=== PATIENT | male | born 1980 | race Two or more races ===

== ENCOUNTER 2021-11-14 14:50 | Inpatient (IN) | payer OTHER ==
[2021-11-14] MEDS ORDERED: SODIUM CHLORIDE 2,694 ML IV ONE (15:25)
[2021-11-14] MEDS ORDERED: ONDANSETRON 4 MG/2 ML VIAL IVPB ONE (15:46)
[2021-11-14] MEDS ORDERED: ONDANSETRON 4 MG/2 ML VIAL ONE (15:50)
[2021-11-14] MEDS ORDERED: SODIUM CHLORIDE 500 ML IV STA (16:31)
[2021-11-14] MEDS ORDERED: ACETAMINOPHEN 1000 MG/100 ML BAG IVPB ONE ×2 (16:31→16:46)
[2021-11-14 16:35] LABS: BASO % 0.2 % (0-2.0); EOS % 0.6 % (0-4.5); HEMATOCRIT 34.3 % (35.4-49); HEMOGLOBIN 11.8 GM/dL (11.7-16.9); LYMPH % 7.8 % (8-40); MCH 30.8 pg (25.7-33.7); MCHC 34.5 g/dl (32.0-35.9); MEAN CELL VOLUME 89.5 fl (80-96); MEAN PLT VOLUME 7.3 fl (7.5-11.1); MONO % 5.1 % (3.8-10.2); NEUT % 86.3 % (42.8-82.8); PLATELET COUNT 194 10^3/uL (134-434); RBC 3.84 M/mm3 (4.00-5.60); RDW 14.1 % (11.9-15.9); WHITE BLOOD COUNT 7.2 K/mm3 (4.0-10.0)
[2021-11-14 16:43] LABS: INR 1.13 (0.83-1.09)
[2021-11-14 16:44] LABS: VENOUS BASE EXCESS 0.7 mmol/L (-2-2); VENOUS O2 SATURATION 60.4 % (70-80); VENOUS PCO2 53.5 mmHg (38-52); VENOUS PH 7.328 (7.310-7.410)
[2021-11-14 16:46] LABS: ACTIVATED PTT 29.5 SECONDS (25.2-36.5)
[2021-11-14 17:01] LABS: CHLORIDE 96 mmol/L (98-107); SODIUM 135 mmol/L (136-145)
[2021-11-14 17:04] LABS: ALBUMIN 4.2 g/dl (3.4-5.0); ANION GAP 7 MMOL/L (8-16); BLOOD UREA NITROGEN 24.3 mg/dL (7-18); CO2 32 mmol/L (21-32); GLUCOSE,RANDOM 92 mg/dL (74-106)
[2021-11-14 17:07] LABS: CREATININE 6.6 mg/dL (0.55-1.3); SGOT/AST 18 U/L (15-37); SGPT/ALT 26 U/L (13-61)
[2021-11-14 17:08] LABS: BILIRUBIN,TOTAL 0.5 mg/dL (0.2-1)
[2021-11-14 17:09] LABS: TOT PROT 8.6 g/dl (6.4-8.2)
[2021-11-14 17:10] LABS: ALK PHOS 96 U/L (45-117)
[2021-11-14] MEDS ORDERED: ACETAMINOPHEN INJECTION 100 ML IVPB ONE (17:11)
[2021-11-14 17:40] LABS: LIPASE 146 U/L (73-393)
[2021-11-14] MEDS ORDERED: DEXAMETHASONE SOD PHOSPHATE 20 MG/5 ML VIAL IVPB ONE (18:03)
[2021-11-14 18:12] LABS: PHOSPHOROUS 3.1 mg/dL (2.5-4.9)
[2021-11-14] MEDS ORDERED: DEXAMETHASONE SOD PHOSPHATE 10 MG/1 ML VIAL ONE (18:57)
[2021-11-14 21:12] LABS: EPI CELLS 7 /uL (0-25.1); HYALINE CASTS 1 /uL (0-3.1); PH,URINE >= 9.0 (5.0-8.0); URINE APPEARANCE CLEAR; URINE BACTERIA 14 /uL (0-1359); URINE BILIRUBIN NEGATIVE (NEGATIVE); URINE COLOR YELLOW; URINE GLUCOSE (UA) TRACE (NEGATIVE); URINE KETONE NEGATIVE (NEGATIVE); URINE LEUK ESTERASE TRACE (NEGATIVE); URINE NITRITE NEGATIVE (NEGATIVE); URINE PROTEIN 3+ (NEGATIVE); URINE RBC 37 /uL (0-23.9); URINE UROBILINOGEN 0.2 mg/dL (0.2-1.0); URINE WBC 184 /uL (0-25.8)
[2021-11-14] MEDS ORDERED: CEFTRIAXONE 1,000 MG in DEXTROSE 5%-WATER - 50 ML IVPB ONE (21:55)
[2021-11-14] MEDS ORDERED: ACETAMINOPHEN 325 MG TABLET (FP) PO PRN (22:31)
[2021-11-14] MEDS ORDERED: SODIUM CHLORIDE 250 ML IV PRN (22:33)
[2021-11-14] MEDS ORDERED: CEFTRIAXONE 1 GM/50 ML BAG ONE (22:50)
[2021-11-15 03:02] VITALS: BMI 29.2
[2021-11-15] MEDS ORDERED: DEXTROSE 5%-WATER - 50 ML IVPB ONE ×3 (04:56→17:24)
[2021-11-15] MEDS ORDERED: PIPERACILLIN/TAZOBACTAM 3.375 GM VIAL IVPB ONE ×3 (04:56→17:24)
[2021-11-15] MEDS ORDERED: VANCOMYCIN 1 GM in D5W (PRE-DOCKED) 1,000 MG/250 ML IVPB SCH (05:00)
[2021-11-15] MEDS: PIPERACILLIN/TAZOB 3.375 GM 3.375 GM in DEXTROSE 5%-WATER - 50 ML IVPB SCH ×3 (05:20→17:41)
[2021-11-15] MEDS: INSULIN SLIDING SCALE (NOVOLOG) 1 VIAL SQ SCH ×4 (06:02→22:00)
[2021-11-15] MEDS: HEPARIN NA (PORCINE) 5,000 UNITS/ML 1ML VIAL SQ SCH ×3 (06:02→21:54)
[2021-11-15 08:59] LABS: BASO % 0.1 % (0-2.0); EOS % 0.5 % (0-4.5); HEMOGLOBIN 11.2 GM/dL (11.7-16.9); MCH 31.1 pg (25.7-33.7); MCHC 34.8 g/dl (32.0-35.9); MEAN CELL VOLUME 89.3 fl (80-96); MEAN PLT VOLUME 7.3 fl (7.5-11.1); MONO % 5.8 % (3.8-10.2); NEUT % 80.6 % (42.8-82.8); PLATELET COUNT 170 10^3/uL (134-434); RBC 3.59 M/mm3 (4.00-5.60); RDW 13.7 % (11.9-15.9)
[2021-11-15 09:18] LABS: CHLORIDE 94 mmol/L (98-107); SODIUM 130 mmol/L (136-145)
[2021-11-15 09:32] LABS: ALBUMIN 3.6 g/dl (3.4-5.0); ANION GAP 9 MMOL/L (8-16); BLOOD UREA NITROGEN 38.4 mg/dL (7-18); CALCIUM 8.5 mg/dL (8.5-10.1); CO2 26 mmol/L (21-32); MAGNESIUM 2.3 mg/dL (1.8-2.4); PHOSPHOROUS 4.7 mg/dL (2.5-4.9)
[2021-11-15 09:33] LABS: BILIRUBIN,TOTAL 0.5 mg/dL (0.2-1); TOT PROT 7.4 g/dl (6.4-8.2)
[2021-11-15 09:34] LABS: ALK PHOS 79 U/L (45-117)
[2021-11-15 09:35] LABS: SGOT/AST 15 U/L (15-37); SGPT/ALT 21 U/L (13-61)
[2021-11-15 09:40] LABS: CREATININE 8.7 mg/dL (0.55-1.3); GLUCOSE,RANDOM 109 mg/dL (74-106)
[2021-11-15] MEDS ORDERED: PNEUMOC 13-VAL CONJ-DIP CRM/PF 0.5 ML DISP.SYRIN IM ONE (10:00)
[2021-11-15] MEDS: amLODIPine BESYLATE 10 MG TABLET (FP) PO SCH (10:15)
[2021-11-15] MEDS: LISINOPRIL 20 MG TABLET PO SCH (10:16)
[2021-11-15] MEDS: LABETALOL HCL 200 MG TABLET (FP) PO SCH (17:29)
[2021-11-15] MEDS ORDERED: SODIUM CHLORIDE 250 ML IV PRN (18:20)
[2021-11-16] MEDS ORDERED: PIPERACILLIN/TAZOB 3.375 GM 3.375 GM in DEXTROSE 5%-WATER - 50 ML IVPB SCH (02:00)
[2021-11-16] MEDS ORDERED: PIPERACILLIN/TAZOBACTAM 2.25 GM VIAL IVPB ONE ×3 (02:21→09:46)
[2021-11-16] MEDS ORDERED: DEXTROSE 5%-WATER - 50 ML IVPB ONE ×3 (02:22→09:46)
[2021-11-16] MEDS: PIPERACILLIN/TAZOB 2.25 GM 2.25 GM in DEXTROSE 5%-WATER - 50 ML IVPB SCH ×3 (02:30→18:29)
[2021-11-16] MEDS ORDERED: VANCOMYCIN 1 GM in D5W (PRE-DOCKED) 1,000 MG/250 ML IVPB SCH (05:00)
[2021-11-16] MEDS: HEPARIN NA (PORCINE) 5,000 UNITS/ML 1ML VIAL SQ SCH ×3 (06:02→21:35)
[2021-11-16] MEDS: INSULIN SLIDING SCALE (NOVOLOG) 1 VIAL SQ SCH ×4 (06:09→21:36)
[2021-11-16] MEDS: LABETALOL HCL 200 MG TABLET (FP) PO SCH (09:43)
[2021-11-16] MEDS: amLODIPine BESYLATE 10 MG TABLET (FP) PO SCH (09:43)
[2021-11-16] MEDS: LISINOPRIL 20 MG TABLET PO SCH (09:43)
[2021-11-16 10:11] LABS: HEMATOCRIT 28.4 % (35.4-49); HEMOGLOBIN 9.8 GM/dL (11.7-16.9); MCH 30.9 pg (25.7-33.7); MCHC 34.6 g/dl (32.0-35.9); MEAN CELL VOLUME 89.2 fl (80-96); MEAN PLT VOLUME 8.3 fl (7.5-11.1); PLATELET COUNT 148 10^3/uL (134-434); RBC 3.19 M/mm3 (4.00-5.60); RDW 13.6 % (11.9-15.9); WHITE BLOOD COUNT 4.9 K/mm3 (4.0-10.0)
[2021-11-16 10:23] LABS: CHLORIDE 94 mmol/L (98-107); SODIUM 130 mmol/L (136-145)
[2021-11-16 10:26] LABS: ANION GAP 13 MMOL/L (8-16); BLOOD UREA NITROGEN 58.6 mg/dL (7-18); CALCIUM 8.3 mg/dL (8.5-10.1); CO2 23 mmol/L (21-32)
[2021-11-16 10:30] LABS: CREATININE 12.2 mg/dL (0.55-1.3); GLUCOSE,RANDOM 159 mg/dL (74-106)
[2021-11-16] MEDS ORDERED: VANCOMYCIN 1 GRAM (PRE-DOCKED) 1,000 MG/250 ML BAG IVPB ONE (18:00)
[2021-11-16] MEDS ORDERED: INSULIN (NOVOLOG) ASPART 100 UNITS/ML 10ML VIAL ONE (20:51)
[2021-11-17] MEDS ORDERED: PIPERACILLIN/TAZOBACTAM 2.25 GM VIAL IVPB ONE ×2 (01:50→11:22)
[2021-11-17] MEDS ORDERED: DEXTROSE 5%-WATER - 50 ML IVPB ONE ×2 (01:50→11:22)
[2021-11-17] MEDS: PIPERACILLIN/TAZOB 2.25 GM 2.25 GM in DEXTROSE 5%-WATER - 50 ML IVPB SCH ×2 (01:57→11:28)
[2021-11-17] MEDS: HEPARIN NA (PORCINE) 5,000 UNITS/ML 1ML VIAL SQ SCH ×3 (05:48→21:50)
[2021-11-17] MEDS ORDERED: VANCOMYCIN 1 GM in D5W (PRE-DOCKED) 1,000 MG/250 ML IVPB ONE (09:25)
[2021-11-17] MEDS: amLODIPine BESYLATE 10 MG TABLET (FP) PO SCH (10:51)
[2021-11-17] MEDS: LISINOPRIL 20 MG TABLET PO SCH (10:51)
[2021-11-17] MEDS: LABETALOL HCL 200 MG TABLET (FP) PO SCH (10:52)
[2021-11-17] MEDS: INSULIN SLIDING SCALE (NOVOLOG) 1 VIAL SQ SCH ×3 (12:34→21:53)
[2021-11-17] MEDS ORDERED: SODIUM CHLORIDE 250 ML IV PRN (16:35)
[2021-11-18] MEDS: HEPARIN NA (PORCINE) 5,000 UNITS/ML 1ML VIAL SQ SCH ×3 (05:54→21:56)
[2021-11-18] MEDS: INSULIN SLIDING SCALE (NOVOLOG) 1 VIAL SQ SCH ×5 (06:03→22:01)
[2021-11-18 09:15] LABS: BASO % 0.4 % (0-2.0); EOS % 6.9 % (0-4.5); HEMATOCRIT 29.1 % (35.4-49); HEMOGLOBIN 9.9 GM/dL (11.7-16.9); LYMPH % 34.4 % (8-40); MCH 30.3 pg (25.7-33.7); MEAN CELL VOLUME 89.1 fl (80-96); MEAN PLT VOLUME 7.7 fl (7.5-11.1); MONO % 8.6 % (3.8-10.2); NEUT % 49.7 % (42.8-82.8); PLATELET COUNT 182 10^3/uL (134-434); RBC 3.27 M/mm3 (4.00-5.60); RDW 13.7 % (11.9-15.9); WHITE BLOOD COUNT 4.3 K/mm3 (4.0-10.0)
[2021-11-18] MEDS: LISINOPRIL 20 MG TABLET PO SCH (09:35)
[2021-11-18] MEDS: amLODIPine BESYLATE 10 MG TABLET (FP) PO SCH (09:35)
[2021-11-18] MEDS: LABETALOL HCL 200 MG TABLET (FP) PO SCH (09:36)
[2021-11-18 09:37] LABS: CHLORIDE 98 mmol/L (98-107); SODIUM 137 mmol/L (136-145)
[2021-11-18 09:44] LABS: CALCIUM 8.4 mg/dL (8.5-10.1); GLUCOSE,RANDOM 101 mg/dL (74-106)
[2021-11-18 09:45] LABS: ANION GAP 12 MMOL/L (8-16); BLOOD UREA NITROGEN 47.4 mg/dL (7-18); CO2 28 mmol/L (21-32); MAGNESIUM 2.8 mg/dL (1.8-2.4); PHOSPHOROUS 7.6 mg/dL (2.5-4.9)
[2021-11-18 09:48] LABS: CREATININE 11.9 mg/dL (0.55-1.3)
[2021-11-18] MEDS ORDERED: VANCOMYCIN 1 GM in D5W (PRE-DOCKED) 1,000 MG/250 ML IVPB ONE (12:00)
[2021-11-18] MEDS ORDERED: VANCOMYCIN 1 GM in D5W (PRE-DOCKED) 1,000 MG/250 ML IVPB SCH (18:30)
[2021-11-19] MEDS: HEPARIN NA (PORCINE) 5,000 UNITS/ML 1ML VIAL SQ SCH ×2 (06:25→14:28)
[2021-11-19] MEDS: INSULIN SLIDING SCALE (NOVOLOG) 1 VIAL SQ SCH ×2 (06:26→10:22)
[2021-11-19 08:47] LABS: BASO % 0.3 % (0-2.0); EOS % 5.7 % (0-4.5); HEMATOCRIT 30.4 % (35.4-49); HEMOGLOBIN 10.8 GM/dL (11.7-16.9); LYMPH % 35.6 % (8-40); MCH 31.2 pg (25.7-33.7); MCHC 35.3 g/dl (32.0-35.9); MEAN CELL VOLUME 88.5 fl (80-96); MEAN PLT VOLUME 7.4 fl (7.5-11.1); MONO % 7.5 % (3.8-10.2); NEUT % 50.9 % (42.8-82.8); PLATELET COUNT 199 10^3/uL (134-434); RBC 3.44 M/mm3 (4.00-5.60); RDW 13.4 % (11.9-15.9); WHITE BLOOD COUNT 5.1 K/mm3 (4.0-10.0)
[2021-11-19 08:53] LABS: CHLORIDE 100 mmol/L (98-107); SODIUM 138 mmol/L (136-145)
[2021-11-19 08:58] LABS: ANION GAP 7 MMOL/L (8-16); BLOOD UREA NITROGEN 32.7 mg/dL (7-18); CALCIUM 8.2 mg/dL (8.5-10.1); CO2 31 mmol/L (21-32); GLUCOSE,RANDOM 106 mg/dL (74-106); MAGNESIUM 2.4 mg/dL (1.8-2.4)
[2021-11-19 09:08] LABS: CREATININE 9.2 mg/dL (0.55-1.3)
[2021-11-19] MEDS: LABETALOL HCL 200 MG TABLET (FP) PO SCH (10:21)
[2021-11-19] MEDS: amLODIPine BESYLATE 10 MG TABLET (FP) PO SCH (10:22)
[2021-11-19] MEDS: LISINOPRIL 20 MG TABLET PO SCH (10:22)
[2021-11-19 14:12] VITALS: BP 140/88; PULSE 74; TEMP 97.9
[2021-11-20] MEDS ORDERED: VANCOMYCIN 1 GM in D5W (PRE-DOCKED) 1,000 MG/250 ML IVPB SCH (18:30)
== END 2021-11-19 15:30 | disposition home or self-care (01) | DRG 724 ==
LOC: JER 14:50 → JERBED 17:28 → J7W 11-15 02:11 → J6S 11-15 12:15 → J7W 11-17 17:53
PROVIDERS: ADMIT Hospitalist
PROC: 5A1D70Z Performance of Urinary Filtration, Intermittent, Less than 6 Hours Per Day (ICD-10-PCS; principal; 2021-11-16)
PROC: 5A1D70Z Performance of Urinary Filtration, Intermittent, Less than 6 Hours Per Day (ICD-10-PCS; 2021-11-18)
DX: R78.81 Bacteremia (principal); I12.0 Hypertensive chronic kidney disease with stage 5 chronic kidney disease or end stage renal disease; E11.22 Type 2 diabetes mellitus with diabetic chronic kidney disease; N18.6 End stage renal disease; R00.0 Tachycardia, unspecified; E11.42 Type 2 diabetes mellitus with diabetic polyneuropathy; R09.02 Hypoxemia; R10.9 Unspecified abdominal pain; R11.2 Nausea with vomiting, unspecified; Z79.4 Long term (current) use of insulin; Z99.2 Dependence on renal dialysis
CPT/HCPCS: 36415; 71045-TC-FY; 71275-TC; 72129-TC; 72132-TC; 80048; 80053; 81003; 82553; 82803; 82962; 83605; 83690; 83735; 84100; 84484; 85025; 85027; 85610; 85730; 86803; 86850; 86900; 86901; 87040; 87086; 87186; 87340; 87522; 87804; 93005; 93010; 93306-TC; 99285-25; C9803; G0480; J1644; Q9967; U0003; U0005

== ENCOUNTER 2022-11-09 13:14 | Inpatient (IN) | payer OTHER ==
[2022-11-09] MEDS ORDERED: FUROSEMIDE 40 MG/4 ML INJECTABLE VIAL IVPUSH ONE (14:01)
[2022-11-09] MEDS ORDERED: FUROSEMIDE 40 MG/4 ML INJECTABLE VIAL ONE (14:06)
[2022-11-09 15:49] LABS: BASO % 0.3 % (0-2.0); EOS % 2.8 % (0-4.5); HEMATOCRIT 26.4 % (35.4-49); HEMOGLOBIN 9.1 GM/dL (11.7-16.9); LYMPH % 18.8 % (8-40); MCH 32.4 pg (25.7-33.7); MCHC 34.5 g/dl (32.0-35.9); MEAN CELL VOLUME 93.8 fl (80-96); MEAN PLT VOLUME 6.9 fl (7.5-11.1); MONO % 4.6 % (3.8-10.2); NEUT % 73.5 % (42.8-82.8); PLATELET COUNT 247 10^3/uL (134-434); RBC 2.81 M/mm3 (4.00-5.60); RDW 14.9 % (11.9-15.9); WHITE BLOOD COUNT 6.6 K/mm3 (4.0-10.0)
[2022-11-09 15:50] LABS: VENOUS BASE EXCESS 5.4 mmol/L (-2-2); VENOUS O2 SATURATION 55.2 % (70-80); VENOUS PCO2 45.1 mmHg (38-52); VENOUS PH 7.443 (7.310-7.410)
[2022-11-09 16:08] LABS: INR 1.1 (0.83-1.09); PROTHROMBIN TIME (PATIENT) 12.7 SEC (9.7-13.0)
[2022-11-09 16:10] LABS: ACTIVATED PTT 28.7 SECONDS (25.2-36.5)
[2022-11-09 16:13] LABS: ALBUMIN 3.3 g/dl (3.4-5.0); BLOOD UREA NITROGEN 20.8 mg/dL (7-18); CALCIUM 8.7 mg/dL (8.5-10.1); MAGNESIUM 2.3 mg/dL (1.8-2.4)
[2022-11-09 16:18] LABS: BILIRUBIN,TOTAL 0.5 mg/dL (0.2-1); TOT PROT 7.3 g/dl (6.4-8.2)
[2022-11-09 16:21] LABS: N-TERMINAL BNP 12675.4 pg/ml (5-125)
[2022-11-09] MEDS ORDERED: CALCIUM ACETATE 667 MG CAPSULE (FP) PO SCH (22:00)
[2022-11-09] MEDS ORDERED: LABETALOL HCL 100 MG TABLET (FP) ONE (23:09)
[2022-11-09] MEDS ORDERED: HEPARIN NA (PORCINE) 5,000 UNITS/ML 1ML VIAL ONE (23:09)
[2022-11-09] MEDS ORDERED: GABAPENTIN 100 MG CAPSULE ONE (23:14)
[2022-11-09] MEDS: HEPARIN NA (PORCINE) 5,000 UNITS/ML 1ML VIAL SQ SCH (23:15)
[2022-11-09] MEDS: LABETALOL HCL 100 MG TABLET (FP) PO SCH (23:15)
[2022-11-09] MEDS: CALCIUM ACETATE 667 MG CAPSULE (FP) PO SCH (23:15)
[2022-11-09] MEDS: GABAPENTIN 300 MG CAPSULE PO SCH (23:15)
[2022-11-10 01:35] VITALS: BMI 30.4
[2022-11-10] MEDS: LABETALOL HCL 100 MG TABLET (FP) PO SCH ×3 (06:25→21:09)
[2022-11-10] MEDS: HEPARIN NA (PORCINE) 5,000 UNITS/ML 1ML VIAL SQ SCH ×3 (06:25→21:09)
[2022-11-10] MEDS: INSULIN SLIDING SCALE (NOVOLOG) 1 VIAL SQ SCH ×3 (06:25→18:04)
[2022-11-10] MEDS ORDERED: glipiZIDE 5 MG TABLET (FP) PO SCH (07:00)
[2022-11-10] MEDS ORDERED: SODIUM CHLORIDE 250 ML IV PRN (07:26)
[2022-11-10] MEDS ORDERED: EPOETIN ALFA-EPBX 4,000 UNIT/ML VIAL SQ ONE (08:30)
[2022-11-10] MEDS: CALCIUM ACETATE 667 MG CAPSULE (FP) PO SCH ×3 (08:44→18:04)
[2022-11-10 09:15] LABS: CHLORIDE 104 mmol/L (98-107); SODIUM 139 mmol/L (136-145)
[2022-11-10 09:30] LABS: ANION GAP 6 MMOL/L (8-16); BLOOD UREA NITROGEN 33.7 mg/dL (7-18); CALCIUM 8.8 mg/dL (8.5-10.1); CO2 28 mmol/L (21-32); GLUCOSE,RANDOM 128 mg/dL (74-106)
[2022-11-10 09:37] LABS: CREATININE 8.8 mg/dL (0.55-1.3)
[2022-11-10] MEDS: GABAPENTIN 300 MG CAPSULE PO SCH ×2 (09:50→21:09)
[2022-11-10] MEDS: amLODIPine BESYLATE 10 MG TABLET (FP) PO SCH (09:52)
[2022-11-10] MEDS ORDERED: LISINOPRIL 10 MG TABLET PO SCH (10:00)
[2022-11-10 12:34] LABS: BASO % 0.2 % (0-2.0); EOS % 3.9 % (0-4.5); HEMATOCRIT 24.5 % (35.4-49); HEMOGLOBIN 8.1 GM/dL (11.7-16.9); LYMPH % 13.4 % (8-40); MCH 31.5 pg (25.7-33.7); MCHC 33.2 g/dl (32.0-35.9); MEAN PLT VOLUME 7.6 fl (7.5-11.1); MONO % 4.6 % (3.8-10.2); NEUT % 77.9 % (42.8-82.8); PLATELET COUNT 236 10^3/uL (134-434); RBC 2.58 M/mm3 (4.00-5.60); RDW 15.4 % (11.9-15.9)
[2022-11-10] MEDS ORDERED: LISINOPRIL 20 MG TABLET PO SCH (14:14)
[2022-11-11] MEDS: LABETALOL HCL 100 MG TABLET (FP) PO SCH ×3 (06:30→22:54)
[2022-11-11] MEDS: HEPARIN NA (PORCINE) 5,000 UNITS/ML 1ML VIAL SQ SCH ×3 (06:30→22:54)
[2022-11-11] MEDS: INSULIN SLIDING SCALE (NOVOLOG) 1 VIAL SQ SCH ×3 (06:34→16:10)
[2022-11-11] MEDS ORDERED: SODIUM CHLORIDE 250 ML IV PRN (07:26)
[2022-11-11] MEDS ORDERED: EPOETIN ALFA-EPBX 4,000 UNIT/ML VIAL SQ ONE (08:30)
[2022-11-11 08:31] LABS: BASO % 0.1 % (0-2.0); EOS % 5.3 % (0-4.5); HEMATOCRIT 24.5 % (35.4-49); HEMOGLOBIN 8.4 GM/dL (11.7-16.9); LYMPH % 16.7 % (8-40); MCH 32.5 pg (25.7-33.7); MCHC 34.4 g/dl (32.0-35.9); MEAN CELL VOLUME 94.3 fl (80-96); MEAN PLT VOLUME 7.3 fl (7.5-11.1); MONO % 5.1 % (3.8-10.2); NEUT % 72.8 % (42.8-82.8); PLATELET COUNT 223 10^3/uL (134-434); RBC 2.59 M/mm3 (4.00-5.60); RDW 15.1 % (11.9-15.9); WHITE BLOOD COUNT 6.5 K/mm3 (4.0-10.0)
[2022-11-11 08:53] LABS: CALCIUM 8.4 mg/dL (8.5-10.1)
[2022-11-11 08:55] LABS: BLOOD UREA NITROGEN 24.1 mg/dL (7-18); MAGNESIUM 2.2 mg/dL (1.8-2.4)
[2022-11-11 08:57] LABS: PHOSPHOROUS 4.5 mg/dL (2.5-4.9)
[2022-11-11 08:58] LABS: BILIRUBIN,TOTAL 0.6 mg/dL (0.2-1); CREATININE 6.8 mg/dL (0.55-1.3); TOT PROT 6.6 g/dl (6.4-8.2)
[2022-11-11] MEDS: GABAPENTIN 300 MG CAPSULE PO SCH ×2 (09:30→22:54)
[2022-11-11] MEDS: CALCIUM ACETATE 667 MG CAPSULE (FP) PO SCH ×3 (09:30→17:21)
[2022-11-11] MEDS: amLODIPine BESYLATE 10 MG TABLET (FP) PO SCH (09:30)
[2022-11-11] MEDS: LISINOPRIL 20 MG TABLET PO SCH (09:31)
[2022-11-12] MEDS: LABETALOL HCL 200 MG, LABETALOL HCL 100 MG PO SCH ×3 (06:34→22:29)
[2022-11-12] MEDS: HEPARIN NA (PORCINE) 5,000 UNITS/ML 1ML VIAL SQ SCH ×3 (06:34→22:29)
[2022-11-12] MEDS: INSULIN SLIDING SCALE (NOVOLOG) 1 VIAL SQ SCH ×3 (06:39→17:41)
[2022-11-12] MEDS: LABETALOL HCL 100 MG TABLET (FP) PO SCH (06:52)
[2022-11-12 08:18] LABS: BASO % 0.2 % (0-2.0); EOS % 6.5 % (0-4.5); HEMATOCRIT 24.3 % (35.4-49); HEMOGLOBIN 8.4 GM/dL (11.7-16.9); LYMPH % 27.7 % (8-40); MCH 32.4 pg (25.7-33.7); MCHC 34.4 g/dl (32.0-35.9); MEAN CELL VOLUME 94.1 fl (80-96); MEAN PLT VOLUME 7.7 fl (7.5-11.1); MONO % 5.2 % (3.8-10.2); NEUT % 60.4 % (42.8-82.8); PLATELET COUNT 217 10^3/uL (134-434); RBC 2.58 M/mm3 (4.00-5.60); RDW 15.1 % (11.9-15.9); WHITE BLOOD COUNT 5.5 K/mm3 (4.0-10.0)
[2022-11-12 08:42] LABS: CALCIUM 8.3 mg/dL (8.5-10.1)
[2022-11-12 08:43] LABS: ALBUMIN 2.9 g/dl (3.4-5.0); MAGNESIUM 2.1 mg/dL (1.8-2.4)
[2022-11-12 08:46] LABS: CREATININE 6.2 mg/dL (0.55-1.3); PHOSPHOROUS 4.8 mg/dL (2.5-4.9)
[2022-11-12 08:47] LABS: TOT PROT 6.6 g/dl (6.4-8.2)
[2022-11-12 08:49] LABS: BILIRUBIN,TOTAL 0.7 mg/dL (0.2-1)
[2022-11-12] MEDS: CALCIUM ACETATE 667 MG CAPSULE (FP) PO SCH ×3 (09:32→18:17)
[2022-11-12] MEDS: LISINOPRIL 20 MG TABLET PO SCH (09:33)
[2022-11-12] MEDS: GABAPENTIN 300 MG CAPSULE PO SCH ×2 (09:33→22:29)
[2022-11-12] MEDS: amLODIPine BESYLATE 10 MG TABLET (FP) PO SCH (09:33)
[2022-11-12] MEDS: FUROSEMIDE 40 MG TABLET (FP) PO SCH (09:39)
[2022-11-12] MEDS ORDERED: EPOETIN ALFA-EPBX 4,000 UNIT/ML VIAL IVPUSH ONE (13:30)
[2022-11-12 13:40] LABS: EPI CELLS 4 /uL (0-25.1); HYALINE CASTS 1 /uL (0-3.1); PH,URINE >= 9.0 (5.0-8.0); URINE APPEARANCE CLEAR; URINE BACTERIA 36 /uL (0-1359); URINE BILIRUBIN NEGATIVE (NEGATIVE); URINE COLOR YELLOW; URINE GLUCOSE (UA) 1+ (NEGATIVE); URINE KETONE NEGATIVE (NEGATIVE); URINE LEUK ESTERASE NEGATIVE (NEGATIVE); URINE NITRITE NEGATIVE (NEGATIVE); URINE PROTEIN 4+ (NEGATIVE); URINE RBC 14 /uL (0-23.9); URINE UROBILINOGEN 0.2 mg/dL (0.2-1.0); URINE WBC 10 /uL (0-25.8)
[2022-11-13] MEDS: HEPARIN NA (PORCINE) 5,000 UNITS/ML 1ML VIAL SQ SCH ×3 (06:20→21:20)
[2022-11-13] MEDS: INSULIN SLIDING SCALE (NOVOLOG) 1 VIAL SQ SCH ×3 (06:20→16:58)
[2022-11-13] MEDS: LABETALOL HCL 200 MG, LABETALOL HCL 100 MG PO SCH ×3 (06:20→21:19)
[2022-11-13 07:29] LABS: BASO % 0.3 % (0-2.0); EOS % 5.4 % (0-4.5); HEMATOCRIT 23.5 % (35.4-49); HEMOGLOBIN 8.1 GM/dL (11.7-16.9); LYMPH % 21.5 % (8-40); MCH 32.5 pg (25.7-33.7); MCHC 34.6 g/dl (32.0-35.9); MEAN CELL VOLUME 93.9 fl (80-96); MEAN PLT VOLUME 7.8 fl (7.5-11.1); MONO % 5.8 % (3.8-10.2); PLATELET COUNT 202 10^3/uL (134-434); RBC 2.51 M/mm3 (4.00-5.60); WHITE BLOOD COUNT 5.2 K/mm3 (4.0-10.0)
[2022-11-13 07:53] LABS: ANION GAP 5 MMOL/L (8-16); BLOOD UREA NITROGEN 43.4 mg/dL (7-18); CALCIUM 8.4 mg/dL (8.5-10.1); CHLORIDE 98 mmol/L (98-107); CO2 32 mmol/L (21-32); SODIUM 136 mmol/L (136-145)
[2022-11-13 07:54] LABS: ALBUMIN 2.9 g/dl (3.4-5.0); GLUCOSE,RANDOM 139 mg/dL (74-106); MAGNESIUM 2.2 mg/dL (1.8-2.4)
[2022-11-13 07:56] LABS: PHOSPHOROUS 5.6 mg/dL (2.5-4.9); SGPT/ALT 14 U/L (13-61)
[2022-11-13 07:57] LABS: SGOT/AST 12 U/L (15-37)
[2022-11-13 07:58] LABS: BILIRUBIN,TOTAL 0.4 mg/dL (0.2-1); TOT PROT 6.4 g/dl (6.4-8.2)
[2022-11-13 07:59] LABS: ALK PHOS 78 U/L (45-117)
[2022-11-13] MEDS: CALCIUM ACETATE 667 MG CAPSULE (FP) PO SCH ×3 (08:43→16:50)
[2022-11-13] MEDS: GABAPENTIN 300 MG CAPSULE PO SCH ×2 (09:03→21:20)
[2022-11-13 11:00] LABS: ERYTHROCYTE SEDIMENTATION RATE 87 mm/hr (0-10)
[2022-11-13] MEDS ORDERED: SODIUM CHLORIDE 250 ML IV PRN (13:24)
[2022-11-13] MEDS ORDERED: EPOETIN ALFA-EPBX 4,000 UNIT/ML VIAL IVPUSH ONE (14:45)
[2022-11-13] MEDS: amLODIPine BESYLATE 10 MG TABLET (FP) PO SCH (16:49)
[2022-11-13] MEDS: LISINOPRIL 20 MG TABLET PO SCH (16:49)
[2022-11-14] MEDS: HEPARIN NA (PORCINE) 5,000 UNITS/ML 1ML VIAL SQ SCH ×3 (05:42→21:09)
[2022-11-14] MEDS: LABETALOL HCL 200 MG, LABETALOL HCL 100 MG PO SCH ×3 (05:43→21:08)
[2022-11-14] MEDS: INSULIN SLIDING SCALE (NOVOLOG) 1 VIAL SQ SCH ×3 (06:10→16:33)
[2022-11-14] MEDS: CALCIUM ACETATE 667 MG CAPSULE (FP) PO SCH ×3 (07:47→16:36)
[2022-11-14 07:57] LABS: BASO % 0.2 % (0-2.0); EOS % 5.1 % (0-4.5); HEMATOCRIT 24.1 % (35.4-49); HEMOGLOBIN 8.3 GM/dL (11.7-16.9); MCH 32.5 pg (25.7-33.7); MCHC 34.5 g/dl (32.0-35.9); MEAN CELL VOLUME 94.1 fl (80-96); MEAN PLT VOLUME 7.7 fl (7.5-11.1); MONO % 4.2 % (3.8-10.2); NEUT % 65.5 % (42.8-82.8); PLATELET COUNT 201 10^3/uL (134-434); RBC 2.56 M/mm3 (4.00-5.60); RDW 15.3 % (11.9-15.9); WHITE BLOOD COUNT 5.7 K/mm3 (4.0-10.0)
[2022-11-14 08:37] LABS: CALCIUM 8.2 mg/dL (8.5-10.1)
[2022-11-14 08:38] LABS: MAGNESIUM 2.2 mg/dL (1.8-2.4)
[2022-11-14 08:42] LABS: BILIRUBIN,TOTAL 0.3 mg/dL (0.2-1); TOT PROT 6.5 g/dl (6.4-8.2)
[2022-11-14 08:44] LABS: PHOSPHOROUS 4.1 mg/dL (2.5-4.9)
[2022-11-14 08:50] LABS: BLOOD UREA NITROGEN 33.1 mg/dL (7-18); CREATININE 7.3 mg/dL (0.55-1.3)
[2022-11-14] MEDS: amLODIPine BESYLATE 10 MG TABLET (FP) PO SCH (09:32)
[2022-11-14] MEDS: LISINOPRIL 20 MG TABLET PO SCH (09:32)
[2022-11-14] MEDS: GABAPENTIN 300 MG CAPSULE PO SCH ×2 (09:32→21:09)
[2022-11-14] MEDS ORDERED: FUROSEMIDE 40 MG TABLET (FP) PO ONE (10:00)
[2022-11-15 02:06] VITALS: RESP 18
[2022-11-15] MEDS: LABETALOL HCL 200 MG, LABETALOL HCL 100 MG PO SCH ×3 (05:48→22:21)
[2022-11-15] MEDS: HEPARIN NA (PORCINE) 5,000 UNITS/ML 1ML VIAL SQ SCH ×3 (05:49→22:21)
[2022-11-15] MEDS: INSULIN SLIDING SCALE (NOVOLOG) 1 VIAL SQ SCH ×3 (06:02→17:20)
[2022-11-15] MEDS: CALCIUM ACETATE 667 MG CAPSULE (FP) PO SCH ×3 (07:38→17:22)
[2022-11-15 07:43] LABS: BASO % 0.3 % (0-2.0); EOS % 5.5 % (0-4.5); HEMATOCRIT 25.1 % (35.4-49); HEMOGLOBIN 8.5 GM/dL (11.7-16.9); LYMPH % 26.6 % (8-40); MCH 32.1 pg (25.7-33.7); MCHC 33.7 g/dl (32.0-35.9); MEAN CELL VOLUME 95.3 fl (80-96); MEAN PLT VOLUME 7.9 fl (7.5-11.1); MONO % 6.3 % (3.8-10.2); NEUT % 61.3 % (42.8-82.8); PLATELET COUNT 183 10^3/uL (134-434); RBC 2.63 M/mm3 (4.00-5.60); RDW 15.2 % (11.9-15.9); WHITE BLOOD COUNT 4.7 K/mm3 (4.0-10.0)
[2022-11-15 08:07] LABS: CHLORIDE 100 mmol/L (98-107); SODIUM 135 mmol/L (136-145)
[2022-11-15 08:15] LABS: ANION GAP 8 MMOL/L (8-16); CALCIUM 8.4 mg/dL (8.5-10.1); CO2 27 mmol/L (21-32); GLUCOSE,RANDOM 141 mg/dL (74-106); MAGNESIUM 2.4 mg/dL (1.8-2.4)
[2022-11-15 08:17] LABS: PHOSPHOROUS 5.5 mg/dL (2.5-4.9); SGPT/ALT 22 U/L (13-61)
[2022-11-15 08:18] LABS: SGOT/AST 14 U/L (15-37)
[2022-11-15 08:19] LABS: BILIRUBIN,TOTAL 0.5 mg/dL (0.2-1); TOT PROT 6.6 g/dl (6.4-8.2)
[2022-11-15 08:20] LABS: ALK PHOS 87 U/L (45-117)
[2022-11-15 08:26] LABS: BLOOD UREA NITROGEN 50.5 mg/dL (7-18); CREATININE 9.8 mg/dL (0.55-1.3)
[2022-11-15] MEDS: amLODIPine BESYLATE 10 MG TABLET (FP) PO SCH (10:17)
[2022-11-15] MEDS: LISINOPRIL 20 MG TABLET PO SCH (10:18)
[2022-11-15] MEDS: FUROSEMIDE 40 MG TABLET (FP) PO SCH (10:18)
[2022-11-15] MEDS: GABAPENTIN 300 MG CAPSULE PO SCH ×2 (10:21→22:21)
[2022-11-15 20:09] LABS: ATYPICAL pANCA <1:20 titer (Neg:<1:20); C-ANCA <1:20 titer (Neg:<1:20)
[2022-11-15 22:09] LABS: ANTIGLOMERULAR BASEMENT MEN.AB <0.2 units (0.0-0.9)
[2022-11-16 05:20] LABS: PROTEIN S FREE 110 % (61-136)
[2022-11-16] MEDS: HEPARIN NA (PORCINE) 5,000 UNITS/ML 1ML VIAL SQ SCH ×2 (06:54→13:29)
[2022-11-16] MEDS: LABETALOL HCL 200 MG, LABETALOL HCL 100 MG PO SCH ×2 (06:54→13:29)
[2022-11-16] MEDS: INSULIN SLIDING SCALE (NOVOLOG) 1 VIAL SQ SCH ×3 (06:56→16:23)
[2022-11-16 09:07] LABS: CHOLESTEROL 151 mg/dL (50-200); TRIGLYCERIDES 158 mg/dL (0-150)
[2022-11-16 09:08] LABS: LDL CHOLESTEROL (ONLY SJRH) 89 mg/dL (5-100)
[2022-11-16 09:09] LABS: HDL CHOLESTEROL 45 mg/dL (40-60)
[2022-11-16 09:13] LABS: BASO % 0.2 % (0-2.0); EOS % 3.9 % (0-4.5); HEMATOCRIT 22.9 % (35.4-49); HEMOGLOBIN 7.7 GM/dL (11.7-16.9); LYMPH % 16.8 % (8-40); MCH 31.6 pg (25.7-33.7); MCHC 33.5 g/dl (32.0-35.9); MEAN CELL VOLUME 94.3 fl (80-96); MONO % 4.6 % (3.8-10.2); NEUT % 74.5 % (42.8-82.8); PLATELET COUNT 192 10^3/uL (134-434); RBC 2.43 M/mm3 (4.00-5.60); RDW 15.1 % (11.9-15.9); WHITE BLOOD COUNT 5.8 K/mm3 (4.0-10.0)
[2022-11-16 09:33] LABS: MAGNESIUM 2.3 mg/dL (1.8-2.4)
[2022-11-16 09:37] LABS: PHOSPHOROUS 5.2 mg/dL (2.5-4.9)
[2022-11-16] MEDS ORDERED: EPOETIN ALFA 10,000 UNIT/1 ML VIAL IVPUSH ONE (10:00)
[2022-11-16] MEDS: CALCIUM ACETATE 667 MG CAPSULE (FP) PO SCH ×3 (10:17→16:51)
[2022-11-16] MEDS: amLODIPine BESYLATE 10 MG TABLET (FP) PO SCH (10:22)
[2022-11-16] MEDS: LISINOPRIL 20 MG TABLET PO SCH (10:22)
[2022-11-16] MEDS ORDERED: SODIUM CHLORIDE 250 ML IV PRN (10:38)
[2022-11-16] MEDS ORDERED: EPOETIN ALFA-EPBX 10,000 UNIT/ML VIAL IVPUSH ONE (10:38)
[2022-11-16] MEDS: GABAPENTIN 300 MG CAPSULE PO SCH (12:16)
[2022-11-16 15:00] VITALS: BP 136/80; PULSE 85; TEMP 98.7
[2022-11-16] MEDS ORDERED: hydrALAZINE HCL 25 MG TABLET (FP) PO SCH (15:00)
[2022-11-16] MEDS ORDERED: ATORVASTATIN CA 10 MG TABLET (FP) PO SCH (22:00)
== END 2022-11-16 18:26 | disposition home or self-care (01) | DRG 133 ==
LOC: JER 13:14 → JERBED 17:41 → J4W 23:27 → J7W 11-15 18:10
PROVIDERS: ADMIT Internal Medicine; ATTEND Internal Medicine
PROC: 5A1D70Z Performance of Urinary Filtration, Intermittent, Less than 6 Hours Per Day (ICD-10-PCS; principal; 2022-11-16)
DX: J96.01 Acute respiratory failure with hypoxia (principal); N18.6 End stage renal disease; I50.31 Acute diastolic (congestive) heart failure; I13.2 Hypertensive heart and chronic kidney disease with heart failure and with stage 5 chronic kidney disease, or end stage renal disease; I27.20 Pulmonary hypertension, unspecified; E11.42 Type 2 diabetes mellitus with diabetic polyneuropathy; E11.22 Type 2 diabetes mellitus with diabetic chronic kidney disease; E66.9 Obesity, unspecified; Z68.30 Body mass index [BMI] 30.0-30.9, adult; D64.9 Anemia, unspecified; Z99.2 Dependence on renal dialysis; E87.70 Fluid overload, unspecified; I16.0 Hypertensive urgency
CPT/HCPCS: 0241U-QW; 36415; 71045-TC-FY; 71250-TC; 80048; 80053; 80061; 81003; 82803; 82962; 83036; 83516; 83520; 83735; 83880; 84100; 84443; 84484; 85025; 85303; 85305; 85306; 85610; 85651; 85730; 86038; 86140; 86256; 86803; 87081; 87340; 87522; 87899; 93005; 93010; 93306-TC; 93308; 94761; 99285-25; J1644; Q5106

== ENCOUNTER 2022-11-26 17:43 | Inpatient (IN) | payer OTHER ==
[2022-11-26 19:14] LABS: VENOUS BASE EXCESS 1.7 mmol/L (-2-2); VENOUS PCO2 38.1 mmHg (38-52); VENOUS PH 7.448 (7.310-7.410)
[2022-11-26 19:15] LABS: BASO % 0.2 % (0-2.0); HEMATOCRIT 25.4 % (35.4-49); HEMOGLOBIN 8.3 GM/dL (11.7-16.9); LYMPH % 14.2 % (8-40); MCHC 32.6 g/dl (32.0-35.9); MEAN CELL VOLUME 91.8 fl (80-96); MEAN PLT VOLUME 7.1 fl (7.5-11.1); MONO % 4.5 % (3.8-10.2); NEUT % 78.1 % (42.8-82.8); PLATELET COUNT 248 10^3/uL (134-434); RBC 2.76 M/mm3 (4.00-5.60); RDW 14.8 % (11.9-15.9); WHITE BLOOD COUNT 5.5 K/mm3 (4.0-10.0)
[2022-11-26 19:18] LABS: INR 1.14 (0.83-1.09); PROTHROMBIN TIME (PATIENT) 13.2 SEC (9.7-13.0)
[2022-11-26 19:21] LABS: ACTIVATED PTT 31.4 SECONDS (25.2-36.5)
[2022-11-26 19:36] LABS: CALCIUM 8.6 mg/dL (8.5-10.1)
[2022-11-26 19:37] LABS: BLOOD UREA NITROGEN 35.3 mg/dL (7-18); CO2 28 mmol/L (21-32); GLUCOSE,RANDOM 74 mg/dL (74-106)
[2022-11-26 19:40] LABS: SGOT/AST 12 U/L (15-37); SGPT/ALT 13 U/L (13-61)
[2022-11-26 19:41] LABS: BILIRUBIN,TOTAL 0.5 mg/dL (0.2-1); TOT PROT 6.8 g/dl (6.4-8.2)
[2022-11-26 19:43] LABS: ALK PHOS 82 U/L (45-117)
[2022-11-26 19:44] LABS: N-TERMINAL BNP 13148.4 pg/ml (5-125)
[2022-11-26 19:59] LABS: CHLORIDE 106 mmol/L (98-107); SODIUM 142 mmol/L (136-145)
[2022-11-26 20:00] LABS: ANION GAP 8 MMOL/L (8-16); CREATININE 8.9 mg/dL (0.55-1.3)
[2022-11-26] MEDS ORDERED: FUROSEMIDE 100 MG/10 ML INJECTABLE VIAL IVPB ONE (20:38)
[2022-11-26] MEDS ORDERED: FUROSEMIDE 40 MG/4 ML INJECTABLE VIAL ONE (20:51)
[2022-11-26 23:07] LABS: IRON SERUM 32 ug/dL (50-175); TOTAL IRON BINDING CAPACITY 229 ug/dL (250-450)
[2022-11-27 00:54] LABS: MAGNESIUM 2.4 mg/dL (1.8-2.4)
[2022-11-27 00:57] LABS: PHOSPHOROUS 4.1 mg/dL (2.5-4.9)
[2022-11-27] MEDS: HEPARIN NA (PORCINE) 5,000 UNITS/ML 1ML VIAL SQ SCH ×3 (06:04→21:52)
[2022-11-27] MEDS: INSULIN SLIDING SCALE (NOVOLOG) 1 VIAL SQ SCH ×4 (06:06→22:00)
[2022-11-27] MEDS: CALCIUM ACETATE 667 MG CAPSULE (FP) PO SCH ×3 (07:34→17:25)
[2022-11-27 09:27] LABS: BASO % 0.2 % (0-2.0); EOS % 2.3 % (0-4.5); HEMATOCRIT 25.2 % (35.4-49); HEMOGLOBIN 8.3 GM/dL (11.7-16.9); LYMPH % 10.7 % (8-40); MCH 30.3 pg (25.7-33.7); MCHC 33.1 g/dl (32.0-35.9); MEAN CELL VOLUME 91.5 fl (80-96); MEAN PLT VOLUME 7.6 fl (7.5-11.1); MONO % 4.5 % (3.8-10.2); NEUT % 82.3 % (42.8-82.8); PLATELET COUNT 251 10^3/uL (134-434); RBC 2.76 M/mm3 (4.00-5.60); RDW 14.9 % (11.9-15.9); WHITE BLOOD COUNT 8.1 K/mm3 (4.0-10.0)
[2022-11-27] MEDS ORDERED: SODIUM CHLORIDE 250 ML IV PRN (09:27)
[2022-11-27] MEDS ORDERED: HEPARIN NA (PORCINE) 5,000 UNITS/ML 1ML VIAL IVPUSH ONE (09:30)
[2022-11-27 09:52] LABS: MAGNESIUM 2.5 mg/dL (1.8-2.4)
[2022-11-27 09:55] LABS: PHOSPHOROUS 5.1 mg/dL (2.5-4.9)
[2022-11-27] MEDS ORDERED: cloNIDine HCL 0.1 MG TABLET PO SCH (10:00)
[2022-11-27] MEDS ORDERED: EPOETIN ALFA-EPBX 10,000 UNIT/ML VIAL SQ ONE (10:30)
[2022-11-27] MEDS: LISINOPRIL 20 MG TABLET PO SCH (12:16)
[2022-11-27] MEDS: amLODIPine BESYLATE 10 MG TABLET (FP) PO SCH (12:16)
[2022-11-27] MEDS: LABETALOL HCL 200 MG, LABETALOL HCL 100 MG PO SCH ×2 (13:32→21:52)
[2022-11-27] MEDS: cloNIDine HCL 0.1 MG TABLET PO SCH (21:52)
[2022-11-28] MEDS: HEPARIN NA (PORCINE) 5,000 UNITS/ML 1ML VIAL SQ SCH ×3 (06:50→22:35)
[2022-11-28] MEDS: LABETALOL HCL 200 MG, LABETALOL HCL 100 MG PO SCH ×3 (06:50→22:34)
[2022-11-28] MEDS: INSULIN SLIDING SCALE (NOVOLOG) 1 VIAL SQ SCH ×4 (06:50→22:35)
[2022-11-28 07:57] LABS: BASO % 0.3 % (0-2.0); HEMATOCRIT 23.9 % (35.4-49); LYMPH % 19.2 % (8-40); MCH 30.6 pg (25.7-33.7); MCHC 33.6 g/dl (32.0-35.9); MEAN PLT VOLUME 7.6 fl (7.5-11.1); MONO % 5.1 % (3.8-10.2); NEUT % 72.4 % (42.8-82.8); PLATELET COUNT 255 10^3/uL (134-434); RBC 2.63 M/mm3 (4.00-5.60); RDW 14.9 % (11.9-15.9); WHITE BLOOD COUNT 5.2 K/mm3 (4.0-10.0)
[2022-11-28 08:02] LABS: CHLORIDE 100 mmol/L (98-107); SODIUM 138 mmol/L (136-145)
[2022-11-28 08:08] LABS: CALCIUM 8.3 mg/dL (8.5-10.1)
[2022-11-28 08:09] LABS: ALBUMIN 2.8 g/dl (3.4-5.0); BLOOD UREA NITROGEN 29.7 mg/dL (7-18); CO2 30 mmol/L (21-32); GLUCOSE,RANDOM 113 mg/dL (74-106)
[2022-11-28 08:12] LABS: PHOSPHOROUS 4.2 mg/dL (2.5-4.9); SGOT/AST 14 U/L (15-37); SGPT/ALT 11 U/L (13-61)
[2022-11-28 08:13] LABS: TOT PROT 6.4 g/dl (6.4-8.2)
[2022-11-28 08:14] LABS: ALK PHOS 81 U/L (45-117)
[2022-11-28 08:15] LABS: BILIRUBIN,TOTAL 0.7 mg/dL (0.2-1)
[2022-11-28 08:20] LABS: ANION GAP 8 MMOL/L (8-16); CREATININE 7.8 mg/dL (0.55-1.3)
[2022-11-28] MEDS: LISINOPRIL 20 MG TABLET PO SCH (10:40)
[2022-11-28] MEDS: CALCIUM ACETATE 667 MG CAPSULE (FP) PO SCH ×3 (10:40→18:05)
[2022-11-28] MEDS: amLODIPine BESYLATE 10 MG TABLET (FP) PO SCH (10:41)
[2022-11-28] MEDS: cloNIDine HCL 0.1 MG TABLET PO SCH ×2 (10:41→22:35)
[2022-11-28] MEDS ORDERED: SODIUM CHLORIDE 250 ML IV PRN (12:02)
[2022-11-28] MEDS ORDERED: FUROSEMIDE 100 MG/10 ML INJECTABLE VIAL IVPB SCH (12:15)
[2022-11-28 14:26] VITALS: BMI 29.5
[2022-11-29] MEDS: HEPARIN NA (PORCINE) 5,000 UNITS/ML 1ML VIAL SQ SCH ×4 (06:41→21:29)
[2022-11-29] MEDS: LABETALOL HCL 200 MG, LABETALOL HCL 100 MG PO SCH ×3 (06:41→21:29)
[2022-11-29] MEDS: INSULIN SLIDING SCALE (NOVOLOG) 1 VIAL SQ SCH ×4 (06:42→21:29)
[2022-11-29] MEDS: CALCIUM ACETATE 667 MG CAPSULE (FP) PO SCH ×3 (07:59→17:57)
[2022-11-29] MEDS ORDERED: HEPARIN NA (PORCINE) 5,000 UNITS/ML 1ML VIAL IVPUSH ONE (10:00)
[2022-11-29] MEDS ORDERED: EPOETIN ALFA-EPBX 10,000 UNIT/ML VIAL IVPUSH ONE (10:00)
[2022-11-29] MEDS: amLODIPine BESYLATE 10 MG TABLET (FP) PO SCH ×2 (10:02→13:39)
[2022-11-29] MEDS: LISINOPRIL 20 MG TABLET PO SCH ×2 (10:02→13:40)
[2022-11-29] MEDS: cloNIDine HCL 0.1 MG TABLET PO SCH ×2 (10:02→21:29)
[2022-11-29 10:18] LABS: HEMATOCRIT 22.6 % (35.4-49); HEMOGLOBIN 7.5 GM/dL (11.7-16.9); MCHC 33.1 g/dl (32.0-35.9); MEAN CELL VOLUME 90.8 fl (80-96); PLATELET COUNT 240 10^3/uL (134-434); RBC 2.49 M/mm3 (4.00-5.60); RDW 14.6 % (11.9-15.9); WHITE BLOOD COUNT 4.6 K/mm3 (4.0-10.0)
[2022-11-29 10:56] LABS: CHLORIDE 99 mmol/L (98-107); SODIUM 136 mmol/L (136-145)
[2022-11-29 10:58] LABS: BLOOD UREA NITROGEN 43.6 mg/dL (7-18); CO2 27 mmol/L (21-32); GLUCOSE,RANDOM 125 mg/dL (74-106)
[2022-11-29 11:11] LABS: ANION GAP 9 MMOL/L (8-16); CREATININE 10.4 mg/dL (0.55-1.3)
[2022-11-30] MEDS: HEPARIN NA (PORCINE) 5,000 UNITS/ML 1ML VIAL SQ SCH ×2 (05:43→15:59)
[2022-11-30] MEDS: LABETALOL HCL 200 MG, LABETALOL HCL 100 MG PO SCH ×2 (05:43→15:59)
[2022-11-30] MEDS: INSULIN SLIDING SCALE (NOVOLOG) 1 VIAL SQ SCH ×3 (06:08→17:29)
[2022-11-30 07:14] LABS: HEMATOCRIT 23.9 % (35.4-49); MCH 30.5 pg (25.7-33.7); MCHC 33.4 g/dl (32.0-35.9); MEAN CELL VOLUME 91.2 fl (80-96); MEAN PLT VOLUME 7.7 fl (7.5-11.1); PLATELET COUNT 238 10^3/uL (134-434); RBC 2.63 M/mm3 (4.00-5.60); RDW 14.8 % (11.9-15.9); WHITE BLOOD COUNT 4.5 K/mm3 (4.0-10.0)
[2022-11-30 07:40] LABS: CHLORIDE 102 mmol/L (98-107); SODIUM 139 mmol/L (136-145)
[2022-11-30 07:46] LABS: ALBUMIN 2.8 g/dl (3.4-5.0); ANION GAP 5 MMOL/L (8-16); CALCIUM 8.3 mg/dL (8.5-10.1); CO2 32 mmol/L (21-32); GLUCOSE,RANDOM 97 mg/dL (74-106); MAGNESIUM 2.2 mg/dL (1.8-2.4)
[2022-11-30 07:50] LABS: SGOT/AST 8 U/L (15-37); SGPT/ALT 12 U/L (13-61)
[2022-11-30 07:52] LABS: ALK PHOS 77 U/L (45-117); BILIRUBIN,TOTAL 0.4 mg/dL (0.2-1); CREATININE 7.7 mg/dL (0.55-1.3); TOT PROT 6.3 g/dl (6.4-8.2)
[2022-11-30] MEDS: CALCIUM ACETATE 667 MG CAPSULE (FP) PO SCH ×3 (08:22→17:30)
[2022-11-30] MEDS: cloNIDine HCL 0.1 MG TABLET PO SCH (10:58)
[2022-11-30] MEDS: LISINOPRIL 20 MG TABLET PO SCH (10:58)
[2022-11-30] MEDS: amLODIPine BESYLATE 10 MG TABLET (FP) PO SCH (10:58)
[2022-11-30] MEDS ORDERED: SODIUM CHLORIDE 250 ML IV PRN (11:12)
[2022-11-30 18:10] VITALS: BP 141/79; PULSE 78; RESP 20; TEMP 98.6
== END 2022-11-30 19:42 | disposition home or self-care (01) | DRG 194 ==
LOC: JER 17:43 → JERBED 20:39 → UNDOADMOB 20:39 → OBSVTOIN 23:19 → J4W 11-27 03:17
PROVIDERS: ADMIT Internal Medicine; ATTEND Internal Medicine
PROC: 5A1D70Z Performance of Urinary Filtration, Intermittent, Less than 6 Hours Per Day (ICD-10-PCS; principal; 2022-11-27)
PROC: 5A1D70Z Performance of Urinary Filtration, Intermittent, Less than 6 Hours Per Day (ICD-10-PCS; 2022-11-29)
PROC: 5A1D70Z Performance of Urinary Filtration, Intermittent, Less than 6 Hours Per Day (ICD-10-PCS; 2022-11-30)
DX: I13.2 Hypertensive heart and chronic kidney disease with heart failure and with stage 5 chronic kidney disease, or end stage renal disease (principal); E11.22 Type 2 diabetes mellitus with diabetic chronic kidney disease; N18.6 End stage renal disease; J96.01 Acute respiratory failure with hypoxia; I50.32 Chronic diastolic (congestive) heart failure; I27.20 Pulmonary hypertension, unspecified; E11.42 Type 2 diabetes mellitus with diabetic polyneuropathy; D63.1 Anemia in chronic kidney disease; J81.0 Acute pulmonary edema; E87.70 Fluid overload, unspecified; Z86.19 Personal history of other infectious and parasitic diseases; B19.20 Unspecified viral hepatitis C without hepatic coma; Z99.2 Dependence on renal dialysis
CPT/HCPCS: 0241U-QW; 36415; 71045-TC-FY; 71275-TC; 80048; 80053; 82728; 82803; 82962; 83036; 83540; 83550; 83735; 83880; 84100; 84466; 84484; 85025; 85027; 85045; 85610; 85730; 86850; 86900; 86901; 87522; 93005; 93010; 99285-25; G0378; J1644; Q5106; Q9967

== ENCOUNTER 2024-06-23 11:45 | Inpatient (IN) | payer OTHER ==
[2024-06-23 12:09] VITALS: BMI 29.6
[2024-06-23 14:01] LABS: BASO % 0.3 % (0-2.0); EOS % 1.3 % (0-4.5); HEMATOCRIT 22.4 % (35.4-49); HEMOGLOBIN 7.4 GM/dL (11.7-16.9); LYMPH % 8.7 % (8-40); MCH 32.4 pg (25.7-33.7); MEAN PLT VOLUME 7.5 fl (7.5-11.1); MONO % 3.7 % (3.8-10.2); PLATELET COUNT 227 10^3/uL (134-434); RBC 2.29 M/mm3 (4.00-5.60); RDW 15.8 % (11.9-15.9); WHITE BLOOD COUNT 8.2 K/mm3 (4.0-10.0)
[2024-06-23 14:09] LABS: INR 1.13 (0.83-1.09); PROTHROMBIN TIME (PATIENT) 12.9 SEC (9.7-13.0)
[2024-06-23 14:12] LABS: ACTIVATED PTT 30.6 SECONDS (25.2-36.5)
[2024-06-23 14:22] LABS: POTASSIUM 4.6 mmol/L (3.5-5.1)
[2024-06-23 14:24] LABS: ALBUMIN 3.6 g/dl (3.4-5.0); BLOOD UREA NITROGEN 19.5 mg/dL (7-18); CALCIUM 9.4 mg/dL (8.5-10.1)
[2024-06-23 14:28] LABS: CREATININE 6.4 mg/dL (0.55-1.3)
[2024-06-23 14:29] LABS: BILIRUBIN,TOTAL 0.7 mg/dL (0.2-1); TOT PROT 7.7 g/dl (6.4-8.2)
[2024-06-23 15:21] LABS: HIV INTERPRETATION NEGATIVE (NEGATIVE)
[2024-06-23] MEDS ORDERED: SODIUM CHLORIDE 250 ML IV PRN (18:38)
[2024-06-23 20:23] VITALS: RESP 18
[2024-06-23] MEDS ORDERED: LABETALOL HCL 100 MG TABLET (FP) ONE (22:37)
[2024-06-23] MEDS ORDERED: HEPARIN NA (PORCINE) 5,000 UNITS/ML 1ML VIAL ONE (22:38)
[2024-06-23] MEDS: LABETALOL HCL 100 MG TABLET (FP) PO SCH (22:46)
[2024-06-23] MEDS: HEPARIN NA (PORCINE) 5,000 UNITS/ML 1ML VIAL SQ SCH (22:46)
[2024-06-23] MEDS: CALCIUM ACETATE 667 MG CAPSULE (FP) PO SCH (23:05)
[2024-06-24] MEDS ORDERED: LABETALOL HCL 200 MG TABLET (FP) ONE (06:34)
[2024-06-24 07:03] VITALS: TEMP 98.1
[2024-06-24 07:43] LABS: BASO % 0.1 % (0-2.0); EOS % 1.4 % (0-4.5); HEMOGLOBIN 7.8 GM/dL (11.7-16.9); LYMPH % 12.2 % (8-40); MCH 32.2 pg (25.7-33.7); MCHC 33.9 g/dl (32.0-35.9); MEAN PLT VOLUME 7.5 fl (7.5-11.1); MONO % 4.3 % (3.8-10.2); PLATELET COUNT 193 10^3/uL (134-434); RBC 2.42 M/mm3 (4.00-5.60); RDW 16.5 % (11.9-15.9); WHITE BLOOD COUNT 7.3 K/mm3 (4.0-10.0)
[2024-06-24 08:16] LABS: POTASSIUM 4.6 mmol/L (3.5-5.1)
[2024-06-24 08:17] LABS: CALCIUM 8.9 mg/dL (8.5-10.1)
[2024-06-24 08:18] LABS: BLOOD UREA NITROGEN 24.2 mg/dL (7-18)
[2024-06-24 08:21] LABS: CREATININE 6.4 mg/dL (0.55-1.3)
[2024-06-24] MEDS ORDERED: LISINOPRIL 20 MG TABLET ONE (09:52)
[2024-06-24] MEDS ORDERED: amLODIPine BESYLATE 10 MG TABLET (FP) ONE (09:52)
[2024-06-24] MEDS ORDERED: LISINOPRIL 10 MG TABLET PO SCH (10:00)
[2024-06-24] MEDS: LISINOPRIL 20 MG TABLET PO SCH (11:07)
[2024-06-24] MEDS: amLODIPine BESYLATE 10 MG TABLET (FP) PO SCH (11:07)
[2024-06-24] MEDS: CALCIUM ACETATE 667 MG CAPSULE (FP) PO SCH (11:08)
[2024-06-24] MEDS ORDERED: HEPARIN NA (PORCINE) 5,000 UNITS/ML 1ML VIAL ONE (11:27)
[2024-06-24] MEDS ORDERED: LABETALOL HCL 100 MG TABLET (FP) ONE (14:26)
[2024-06-24 14:31] VITALS: BP 121/53; PULSE 83
== END 2024-06-24 15:15 | disposition home or self-care (01) | DRG 194 ==
LOC: JER 11:45 → JERBED 14:36 → OBSVTOIN 18:06 → JERBED 06-24 13:14
PROVIDERS: ADMIT Internal Medicine; ATTEND Internal Medicine
PROC: 30233N1 Transfusion of Nonautologous Red Blood Cells into Peripheral Vein, Percutaneous Approach (ICD-10-PCS; principal; 2024-06-23)
PROC: 5A1D70Z Performance of Urinary Filtration, Intermittent, Less than 6 Hours Per Day (ICD-10-PCS; 2024-06-23)
DX: I13.2 Hypertensive heart and chronic kidney disease with heart failure and with stage 5 chronic kidney disease, or end stage renal disease (principal); N18.6 End stage renal disease; D64.9 Anemia, unspecified; E11.22 Type 2 diabetes mellitus with diabetic chronic kidney disease; E11.42 Type 2 diabetes mellitus with diabetic polyneuropathy; Z79.84 Long term (current) use of oral hypoglycemic drugs; Z99.2 Dependence on renal dialysis
CPT/HCPCS: 36415; 36430; 71045-TC-FY; 80048; 80053; 82962; 85025; 85610; 85730; 86704; 86705; 86803; 86850; 86900; 86901; 86922; 87340; 87389; 87522; 93005; 93010; 99285-25; G0378; J1644; P9058

== ENCOUNTER 2025-03-05 12:58 | Inpatient (IN) | payer OTHER ==
[2025-03-05 13:08] VITALS: BMI 27.4
[2025-03-05] MEDS ORDERED: ACETAMINOPHEN INJECTION 100 ML ONE (13:29)
[2025-03-05] MEDS: ACETAMINOPHEN 1000 MG/100 ML BAG IVPB ONE (13:32)
[2025-03-05 13:59] LABS: HEMOGLOBIN 11.3 g/dL (13.7-17.5); MEAN CELL VOLUME 96.9 fl (79.0-92.2)
[2025-03-05 14:00] LABS: HEMATOCRIT 34.4 % (40.1-51.0); MCHC 32.8 g/dl (32.3-36.5); MEAN PLT VOLUME 10.7 fl (9.4-12.4); PLATELET COUNT 197 x10^3/uL (163-337); RDW 13.6 % (12.1-15.9)
[2025-03-05 14:03] LABS: VENOUS BASE EXCESS 0.8 mmol/L (-2-2); VENOUS O2 SATURATION 26.7 % (70-80); VENOUS PCO2 44.4 mmHg (38-52); VENOUS PH 7.388 (7.310-7.410)
[2025-03-05] MEDS ORDERED: PIPERACILLIN/TAZOB 4.5 GM 4.5 GM/100 ML BAG IVPB ONE (14:04)
[2025-03-05 14:12] LABS: INR 1.28 (0.83-1.09)
[2025-03-05] MEDS: PIPERACILLIN/TAZOB 4.5 GM 4.5 GM in DEXTROSE 5%-WATER 100 ML IVPB ONE (14:13)
[2025-03-05 14:14] LABS: ACTIVATED PTT 28.5 SECONDS (25.2-36.5)
[2025-03-05 14:17] LABS: POTASSIUM 4.6 mmol/L (3.5-5.1)
[2025-03-05 14:19] LABS: ALBUMIN 3.8 g/dl (3.4-5.0); CALCIUM 10.4 mg/dL (8.5-10.1)
[2025-03-05 14:20] LABS: BLOOD UREA NITROGEN 16.9 mg/dL (7-18)
[2025-03-05 14:23] LABS: CREATININE 6.5 mg/dL (0.55-1.3)
[2025-03-05 14:24] LABS: TOT PROT 8.6 g/dl (6.4-8.2)
[2025-03-05 14:29] LABS: LACTIC ACID 2.2 mmol/L (0.4-2.0)
[2025-03-05] MEDS ORDERED: VANCOMYCIN 1 GM PREMIX (F) 1 GM/200 ML BAG ONE (14:46)
[2025-03-05] MEDS: VANCOMYCIN 1,000 MG in DEXTROSE 5%-WATER - 250 ML IVPB ONE (15:00)
[2025-03-05] MEDS ORDERED: ACETAMINOPHEN 325 MG TABLET (FP) PO PRN (16:29)
[2025-03-05 18:03] LABS: BASOPHILS # 0.01 x10^3/uL (0.01-0.08); EOSINOPHIL % 1.9 % (0.8-7.0); EOSINOPHILS # 0.09 x10^3/uL (0.04-0.54); MEAN CELL VOLUME 95.6 fl (79.0-92.2)
[2025-03-05 18:04] LABS: ABSOLUTE IMMATURE GRANULOCYTES 0.01 x10^3/uL (0.0-0.031); HEMATOCRIT 30.5 % (40.1-51.0); HEMOGLOBIN 9.9 g/dL (13.7-17.5); MCHC 32.5 g/dl (32.3-36.5); MEAN PLT VOLUME 10.1 fl (9.4-12.4); MONOCYTE # 0.52 x10^3/uL (0.30-0.82); MONOCYTE % 10.8 % (5.3-12.2); PLATELET COUNT 181 x10^3/uL (163-337); RDW 13.6 % (12.1-15.9)
[2025-03-05 18:40] LABS: CALCIUM 9.7 mg/dL (8.5-10.1)
[2025-03-05 18:41] LABS: BLOOD UREA NITROGEN 19.8 mg/dL (7-18)
[2025-03-05 18:44] LABS: CREATININE 6.9 mg/dL (0.55-1.3)
[2025-03-05] MEDS ORDERED: PANTOPRAZOLE 40 MG TABLET PO ONE (19:39)
[2025-03-05] MEDS: PANTOPRAZOLE 40 MG TABLET PO SCH (19:41)
[2025-03-05] MEDS: HEPARIN NA (PORCINE) 5,000 UNITS/ML 1ML VIAL SQ SCH (21:28)
[2025-03-05] MEDS: SEVELAMER CARBONATE 800 MG TAB (FP) PO SCH (21:28)
[2025-03-06] MEDS: INSULIN ASPART SLIDING SCALE (NOVOLOG) 1 VIAL SQ SCH (02:52)
[2025-03-06] MEDS: PIPERACILLIN/TAZOB 2.25 GM 2.25 GM in DEXTROSE 5%-WATER - 50 ML IVPB SCH (02:53)
[2025-03-06 08:39] LABS: HEMATOCRIT 30.3 % (40.1-51.0); HEMOGLOBIN 9.9 g/dL (13.7-17.5); MCHC 32.7 g/dl (32.3-36.5); MEAN CELL VOLUME 95.6 fl (79.0-92.2); MEAN PLT VOLUME 10.3 fl (9.4-12.4); PLATELET COUNT 172 x10^3/uL (163-337); RDW 13.8 % (12.1-15.9)
[2025-03-06 08:56] LABS: CHLORIDE 98 mmol/L (98-107); POTASSIUM 4.6 mmol/L (3.5-5.1); SODIUM 134 mmol/L (136-145)
[2025-03-06 08:58] LABS: ANION GAP 10 mmol/L (4-13); CALCIUM 9.6 mg/dL (8.5-10.1); CO2 26 mmol/L (21-32); GLUCOSE,RANDOM 131 mg/dL (74-106)
[2025-03-06 09:02] LABS: CREATININE 8.2 mg/dL (0.55-1.3)
[2025-03-06 09:07] LABS: IRON SERUM 32 ug/dL (50-175)
[2025-03-06 09:08] LABS: TOTAL IRON BINDING CAPACITY 144 ug/dL (250-450)
[2025-03-06] MEDS: LABETALOL HCL 100 MG TABLET (FP) PO SCH (10:38)
[2025-03-06] MEDS: FUROSEMIDE 40 MG TABLET (FP) PO SCH (10:38)
[2025-03-06] MEDS: LISINOPRIL 10 MG TABLET PO SCH (10:39)
[2025-03-06] MEDS: amLODIPine BESYLATE 5 MG TABLET (FP) PO SCH (10:39)
[2025-03-06] MEDS: guaiFENesin 600 MG TABLET.ER (FP) PO SCH (11:10)
[2025-03-06] MEDS: ONDANSETRON 4 MG/2 ML VIAL IVPUSH PRN (11:10)
[2025-03-06] MEDS: DEXTROSE 5%-0.45% SALINE 1,000 ML IV SCH (16:01)
[2025-03-07 06:36] LABS: ABSOLUTE IMMATURE GRANULOCYTES 0.04 x10^3/uL (0.0-0.031); BASOPHILS # 0.01 x10^3/uL (0.01-0.08); EOSINOPHIL % 6.5 % (0.8-7.0); EOSINOPHILS # 0.42 x10^3/uL (0.04-0.54); HEMATOCRIT 30.1 % (40.1-51.0); HEMOGLOBIN 9.6 g/dL (13.7-17.5); MCHC 31.9 g/dl (32.3-36.5); MEAN CELL VOLUME 96.5 fl (79.0-92.2); MEAN PLT VOLUME 9.8 fl (9.4-12.4); MONOCYTE # 0.61 x10^3/uL (0.30-0.82); MONOCYTE % 9.4 % (5.3-12.2); PLATELET COUNT 160 x10^3/uL (163-337); RDW 13.4 % (12.1-15.9)
[2025-03-07] MEDS: SODIUM CHLORIDE 250 ML IV STA (06:45)
[2025-03-07 07:04] LABS: CHLORIDE 98 mmol/L (98-107); POTASSIUM 5.2 mmol/L (3.5-5.1); SODIUM 133 mmol/L (136-145)
[2025-03-07 07:09] LABS: CALCIUM 9.4 mg/dL (8.5-10.1)
[2025-03-07 07:10] LABS: ANION GAP 8 mmol/L (4-13); BLOOD UREA NITROGEN 51.2 mg/dL (7-18); CO2 27 mmol/L (21-32); GLUCOSE,RANDOM 131 mg/dL (74-106)
[2025-03-07 07:33] LABS: CREATININE 10.5 mg/dL (0.55-1.3)
[2025-03-07] MEDS ORDERED: SODIUM CHLORIDE 250 ML IV PRN (07:37)
[2025-03-07] MEDS: ALBUTEROL SO4 2.5/IPRATROPIUM 0.5 INH SOL 3 ML VIAL.NEB. NEB SCH (14:50)
[2025-03-07] MEDS: EPOETIN ALFA-EPBX 3,000 UNIT/ML VIAL SQ ONE (15:51)
[2025-03-08 06:58] LABS: ABSOLUTE IMMATURE GRANULOCYTES 0.07 x10^3/uL (0.0-0.031); EOSINOPHILS # 0.32 x10^3/uL (0.04-0.54); MEAN CELL VOLUME 96.6 fl (79.0-92.2)
[2025-03-08 07:01] LABS: BASOPHILS # 0.02 x10^3/uL (0.01-0.08); EOSINOPHIL % 4.8 % (0.8-7.0); HEMATOCRIT 28.1 % (40.1-51.0); HEMOGLOBIN 9.2 g/dL (13.7-17.5); MCHC 32.7 g/dl (32.3-36.5); MONOCYTE # 0.63 x10^3/uL (0.30-0.82); MONOCYTE % 9.5 % (5.3-12.2); PLATELET COUNT 155 x10^3/uL (163-337); RDW 13.4 % (12.1-15.9)
[2025-03-08 07:20] LABS: BLOOD UREA NITROGEN 27.1 mg/dL (7-18); CALCIUM 9.1 mg/dL (8.5-10.1); MAGNESIUM 2.1 mg/dL (1.8-2.4)
[2025-03-08 07:23] LABS: CREATININE 6.5 mg/dL (0.55-1.3)
[2025-03-08] MEDS: FUROSEMIDE 40 MG TABLET (FP) PO SCH (09:42)
[2025-03-08] MEDS: amLODIPine BESYLATE 5 MG TABLET (FP) PO SCH (09:42)
[2025-03-08] MEDS ORDERED: LABETALOL HCL 100 MG TABLET (FP) PO SCH (15:30)
[2025-03-08] MEDS: LISINOPRIL 10 MG TABLET PO SCH (16:31)
[2025-03-08] MEDS: LABETALOL HCL 100 MG TABLET (FP) PO SCH (17:48)
[2025-03-08 21:41] LABS: HEPATITIS B SURF AG NON-MATERN NON-REACTIVE (NONREACTIVE)
[2025-03-08 22:12] LABS: HCV DIAGNOSTIC IN-HOUSE W/RFLX REACTIVE (NONREACTIVE)
[2025-03-09 08:12] LABS: ABSOLUTE IMMATURE GRANULOCYTES 0.07 x10^3/uL (0.0-0.031); BASOPHILS # 0.01 x10^3/uL (0.01-0.08); EOSINOPHIL % 3.1 % (0.8-7.0); EOSINOPHILS # 0.26 x10^3/uL (0.04-0.54); HEMATOCRIT 28.3 % (40.1-51.0); HEMOGLOBIN 9.2 g/dL (13.7-17.5); MCHC 32.5 g/dl (32.3-36.5); MEAN CELL VOLUME 95.3 fl (79.0-92.2); MEAN PLT VOLUME 9.9 fl (9.4-12.4); MONOCYTE % 7.1 % (5.3-12.2); PLATELET COUNT 173 x10^3/uL (163-337); RDW 13.3 % (12.1-15.9)
[2025-03-09] MEDS: EPOETIN ALFA-EPBX 4,000 UNIT/ML VIAL IVPUSH ONE (09:15)
[2025-03-09] MEDS ORDERED: SODIUM CHLORIDE 250 ML IV PRN (10:00)
[2025-03-09] MEDS ORDERED: LISINOPRIL 10 MG TABLET PO SCH (17:15)
[2025-03-10] MEDS ORDERED: INSULIN GLARGINE (LANTUS) 100 UNITS/ML UNITS SQ ONE (06:20)
[2025-03-10] MEDS ORDERED: INSULIN ASPART SLIDING SCALE (NOVOLOG) 1 VIAL SQ ONE (06:20)
[2025-03-10 08:02] LABS: ABSOLUTE IMMATURE GRANULOCYTES 0.06 x10^3/uL (0.0-0.031); BASOPHILS # 0.01 x10^3/uL (0.01-0.08); EOSINOPHIL % 2.7 % (0.8-7.0); EOSINOPHILS # 0.27 x10^3/uL (0.04-0.54); HEMATOCRIT 28.3 % (40.1-51.0); HEMOGLOBIN 9.1 g/dL (13.7-17.5); MCHC 32.2 g/dl (32.3-36.5); MEAN CELL VOLUME 95.9 fl (79.0-92.2); MEAN PLT VOLUME 10.1 fl (9.4-12.4); MONOCYTE # 0.49 x10^3/uL (0.30-0.82); MONOCYTE % 4.8 % (5.3-12.2); PLATELET COUNT 181 x10^3/uL (163-337); RDW 13.4 % (12.1-15.9)
[2025-03-10 08:18] LABS: BLOOD UREA NITROGEN 27.8 mg/dL (7-18); CALCIUM 9.6 mg/dL (8.5-10.1)
[2025-03-10 08:22] LABS: CREATININE 6.6 mg/dL (0.55-1.3)
[2025-03-11 06:42] LABS: ABSOLUTE IMMATURE GRANULOCYTES 0.07 x10^3/uL (0.0-0.031); BASOPHILS # 0.01 x10^3/uL (0.01-0.08); EOSINOPHIL % 4.2 % (0.8-7.0); HEMATOCRIT 27.4 % (40.1-51.0); MCHC 32.8 g/dl (32.3-36.5); MEAN CELL VOLUME 94.5 fl (79.0-92.2); MEAN PLT VOLUME 9.9 fl (9.4-12.4); MONOCYTE # 0.46 x10^3/uL (0.30-0.82); MONOCYTE % 4.8 % (5.3-12.2); PLATELET COUNT 182 x10^3/uL (163-337); RDW 12.9 % (12.1-15.9)
[2025-03-11 07:02] LABS: CHLORIDE 97 mmol/L (98-107); POTASSIUM 4.2 mmol/L (3.5-5.1); SODIUM 135 mmol/L (136-145)
[2025-03-11 07:03] LABS: CALCIUM 9.1 mg/dL (8.5-10.1)
[2025-03-11 07:04] LABS: ANION GAP 9 mmol/L (4-13); BLOOD UREA NITROGEN 36.5 mg/dL (7-18); CO2 28 mmol/L (21-32); GLUCOSE,RANDOM 189 mg/dL (74-106)
[2025-03-11 07:22] LABS: CREATININE 8.4 mg/dL (0.55-1.3)
[2025-03-11] MEDS: INSULIN (NOVOLOG MIX 70/30) 100 UNITS/ML MDV SQ SCH (09:45)
[2025-03-11] MEDS ORDERED: INSULIN (NOVOLOG MIX 70/30) 100 UNITS/ML MDV SQ SCH (16:30)
[2025-03-12] MEDS ORDERED: INSULIN (NOVOLOG MIX 70/30) 100 UNITS/ML MDV SQ ONE (06:57)
[2025-03-12] MEDS ORDERED: INSULIN ASPART SLIDING SCALE (NOVOLOG) 1 VIAL SQ ONE (06:58)
[2025-03-12 07:03] LABS: CHLORIDE 97 mmol/L (98-107); POTASSIUM 4.2 mmol/L (3.5-5.1); SODIUM 134 mmol/L (136-145)
[2025-03-12 07:06] LABS: ANION GAP 10 mmol/L (4-13); CALCIUM 9.2 mg/dL (8.5-10.1); CO2 27 mmol/L (21-32)
[2025-03-12 07:07] LABS: GLUCOSE,RANDOM 210 mg/dL (74-106)
[2025-03-12 07:10] LABS: CREATININE 10.2 mg/dL (0.55-1.3)
[2025-03-12 07:19] LABS: BASOPHILS # 0.02 x10^3/uL (0.01-0.08); EOSINOPHIL % 4.6 % (0.8-7.0); EOSINOPHILS # 0.49 x10^3/uL (0.04-0.54); HEMATOCRIT 27.3 % (40.1-51.0); HEMOGLOBIN 8.9 g/dL (13.7-17.5); MCHC 32.6 g/dl (32.3-36.5); MEAN CELL VOLUME 94.8 fl (79.0-92.2); MONOCYTE # 0.47 x10^3/uL (0.30-0.82); MONOCYTE % 4.4 % (5.3-12.2); PLATELET COUNT 207 x10^3/uL (163-337); RDW 13.4 % (12.1-15.9)
[2025-03-12] MEDS ORDERED: SODIUM CHLORIDE 250 ML IV PRN (10:15)
[2025-03-12] MEDS: EPOETIN ALFA-EPBX 4,000 UNIT/ML VIAL IVPUSH ONE (12:24)
[2025-03-13] MEDS ORDERED: INSULIN ASPART SLIDING SCALE (NOVOLOG) 1 VIAL SQ ONE (06:46)
[2025-03-13] MEDS ORDERED: INSULIN (NOVOLOG MIX 70/30) 100 UNITS/ML MDV SQ ONE (06:46)
[2025-03-13 07:36] LABS: ABSOLUTE IMMATURE GRANULOCYTES 0.07 x10^3/uL (0.0-0.031); BASOPHILS # 0.01 x10^3/uL (0.01-0.08); EOSINOPHIL % 4.3 % (0.8-7.0); EOSINOPHILS # 0.44 x10^3/uL (0.04-0.54); HEMATOCRIT 26.7 % (40.1-51.0); HEMOGLOBIN 8.7 g/dL (13.7-17.5); MCHC 32.6 g/dl (32.3-36.5); MONOCYTE # 0.43 x10^3/uL (0.30-0.82); MONOCYTE % 4.2 % (5.3-12.2); PLATELET COUNT 220 x10^3/uL (163-337); RDW 13.5 % (12.1-15.9)
[2025-03-13 07:41] LABS: POTASSIUM 4.2 mmol/L (3.5-5.1)
[2025-03-13 07:46] LABS: CALCIUM 9.5 mg/dL (8.5-10.1)
[2025-03-13 07:47] LABS: BLOOD UREA NITROGEN 25.6 mg/dL (7-18)
[2025-03-13 07:50] LABS: CREATININE 7.3 mg/dL (0.55-1.3)
[2025-03-13] MEDS: AMOX TR/POT CLAV 500MG/125MG TABLETS (FP) PO SCH (09:10)
[2025-03-13] MEDS ORDERED: SODIUM CHLORIDE 250 ML IV PRN (12:08)
[2025-03-13 18:23] VITALS: BP 132/77; PULSE 91; RESP 18; TEMP 98.1
[2025-03-14] MEDS ORDERED: EPOETIN ALFA-EPBX 4,000 UNIT/ML VIAL SQ ONE (12:08)
== END 2025-03-13 18:40 | disposition home or self-care (01) | DRG 133 ==
LOC: JER 12:58 → JERBED 16:16 → J4S 19:53
PROVIDERS: ADMIT Internal Medicine; ATTEND Internal Medicine
PROC: 5A1D70Z Performance of Urinary Filtration, Intermittent, Less than 6 Hours Per Day (ICD-10-PCS; principal; 2025-03-12)
DX: J96.01 Acute respiratory failure with hypoxia (principal); I13.2 Hypertensive heart and chronic kidney disease with heart failure and with stage 5 chronic kidney disease, or end stage renal disease; J18.9 Pneumonia, unspecified organism; E11.22 Type 2 diabetes mellitus with diabetic chronic kidney disease; E11.42 Type 2 diabetes mellitus with diabetic polyneuropathy; N18.6 End stage renal disease; E11.65 Type 2 diabetes mellitus with hyperglycemia; F10.20 Alcohol dependence, uncomplicated; Z99.2 Dependence on renal dialysis
CPT/HCPCS: 0241U-QW; 36415; 70450-TC; 71045-TC-FY; 71250-TC; 74176-TC; 80048; 80053; 82728; 82803; 82962; 83036; 83540; 83550; 83605; 83735; 84484; 85025; 85610; 85730; 86803; 86850; 86900; 86901; 87040; 87070; 87205; 87340; 87517; 87522; 93005; 93010; 93306-TC; 94640; 94660; 99291; Q5106